=== PATIENT | female | born 2000 | race Caucasian/White ===

== ENCOUNTER 2024-06-26 09:50 | Emergency (ER) | payer MEDICAID ==
[~2024-06-26] VITALS: Ht 165.1 cm; Wt 65.0 kg
[2024-06-26 10:02] VITALS: O2SAT 100
[2024-06-26 11:04] LABS: CLARITY URINE TURBID (CLEAR); COLOR URINE DARK YELLOW (YELLOW); GLUCOSE URINE NEGATIVE (NEGATIVE); KETONES URINE 1+ (NEGATIVE); LEUKOCYTE ESTERASE URINE 2+ (NEGATIVE); NITRITE URINE NEGATIVE (NEGATIVE); OCCULT BLOOD URINE TRACE (NEGATIVE); PH URINE 5.5 (4.5-8.0); PROTEIN URINE TRACE (NEGATIVE); SPECIFIC GRAVITY URINE 1.028 (1.005-1.030)
[2024-06-26 11:17] LABS: SQUAMOUS EPITHELIAL CELL URINE 3+ /lpf (RARE/1+)
[2024-06-26 11:18] LABS: BACTERIA URINE 3+; MUCUS URINE TRACE /lpf (< = 2+)
[2024-06-26 11:20] LABS: WBC URINE 25-50 /hpf (0-2)
[2024-06-26 11:21] LABS: RBC URINE 0-2 /hpf (0-2)
[2024-06-26] MEDS ORDERED: DIPH25CA83 MT (11:36)
[2024-06-26] MEDS: DIPHENHYDRAMINE 25MG CAPSULE PO ONE (11:43)
[2024-06-26] MEDS ORDERED: NITR100C MT (11:57)
[2024-06-26 12:17] VITALS: BP 112/78; PULSE 68; RESP 16; TEMP 37.1; O2SAT 100
== END 2024-06-26 12:19 | disposition home or self-care (01) ==
LOC: ER 10:39
DX: R60.0 Localized edema (principal); Z87.440 Personal history of urinary (tract) infections; Z79.899 Other long term (current) drug therapy
CPT/HCPCS: 81003; 81025; 87086; 87077; 99283; Q0163; Z7610